=== PATIENT | female | born 1980 | race Caucasian/White ===

== ENCOUNTER 2016-12-22 20:09 | Emergency (ER) | payer BC, MEDICAID ==
[~2016-12-22] VITALS: Ht 167.6 cm; Wt 74.8 kg
[2016-12-22 21:04] LABS: *URINE HCG, QUAL NEGATIVE (NEGATIVE)
--- NOTE | 2016-12-22 21:23 | NUR ---
Patient discharged to home in stable conditon. Written and verbal after care instructions given. Patient verbalizes understanding of instructions. WALKED OUT OF ER WITH STEADY GAIT
== END 2016-12-22 21:24 | disposition home or self-care (01) ==
LOC: ER 20:10
DX: M54.12 Radiculopathy, cervical region (principal)
CPT/HCPCS: 84703; A4663